=== PATIENT | female | born 1950 | race Caucasian/White ===

== ENCOUNTER → 2023-08-18 08:28 | Outpatient (REF) | payer MEDICARE, OTHER, SELFPAY | LOC: WDC 08:28 | PROVIDERS: ATTENDING PHYSICIAN Obstetrics & Gynecology Gynecology; FAMILY PHYSICIAN Family Medicine | DX: Z12.31 Encounter for screening mammogram for malignant neoplasm of breast (principal) | CPT/HCPCS: 77063; 77067 ==

== ENCOUNTER → 2024-08-21 07:23 | Outpatient (REF) | payer MEDICARE, OTHER, SELFPAY | LOC: WDC 07:23 | PROVIDERS: ATTENDING PHYSICIAN Obstetrics & Gynecology Gynecology; FAMILY PHYSICIAN Internal Medicine | DX: M81.0 Age-related osteoporosis without current pathological fracture (principal); Z12.31 Encounter for screening mammogram for malignant neoplasm of breast | CPT/HCPCS: 77063; 77067; 77080 ==

== ENCOUNTER 2024-09-29 06:04 | Inpatient (IN) | payer MEDICARE, OTHER, SELFPAY ==
[2024-09-29] VITALS (13 sets, daily range): BP systolic 114–152; BP diastolic 63–87; PULSE 56; O2SAT 98; BMI 24.8; BMI 25.2
[2024-09-29 03:23] LABS: Glucose - Point of Care 101 mg/dl (70-99)
[2024-09-29 03:35] LABS: % Basophils 0.7 % (0-2); % Eosinophils 2.5 % (0-6); % Immature Granulocytes 0.3 % (0-0.5); % Lymphocytes 30.8 % (20.5-51.1); % Neutrophils 57.7 % (42.2-75.2); Absolute Basophils 0.1 10^3/uL (0-0.2); Absolute Eosinophils 0.2 10^3/uL (0-0.7); Absolute Lymphocytes 2.7 10^3/uL (1.2-3.4); Absolute Monocytes 0.7 10^3/uL (0.1-0.6); Absolute Neutrophils 5.1 10^3/uL (1.4-6.5); Hematocrit 37.6 % (37.0-47.0); Hemoglobin 12.8 g/dL (12.0-16.0); Mean Corpuscular Hgb 31.1 pg (27.0-31.0); Mean Corpuscular Volume 91.5 fL (81.0-99.0); Mean Platelet Volume 10.1 fL (7.4-10.4); Nucleated Red Blood Cells % 0 %; Platelet Count 291 10^3/uL (130-400); Red Blood Cell Count 4.11 10^6/uL (4.20-5.40); Red Cell Dist. Width 13.1 % (11.5-14.5); White Blood Cell Count 8.9 10^3/uL (4.8-10.8)
[2024-09-29 03:46] LABS: INR 1.04; PT 13.9 Sec (11.4-14.6)
[2024-09-29 03:47] LABS: APTT 27.8 Sec (23.4-35.0)
[2024-09-29 03:52] LABS: ALT (SGPT) 15 U/L (0-35); AST (SGOT) 20 U/L (14-36); Albumin 4.5 g/dl (3.5-5.0); Alkaline Phosphatase 56 U/L (38-126); Blood Urea Nitrogen 15 mg/dl (7-17); Calcium 9.9 mg/dl (8.4-10.2); Carbon Dioxide 23 mmol/L (22-30); Chloride 107 mmol/L (98-107); Estimated Creatinine Clearance 51 ml/min; Glucose 106 mg/dl (70-99); Potassium 4.2 mmol/L (3.5-5.1); Sodium 139 mmol/L (135-145); Total Protein 7.6 g/dl (6.3-8.2); eGFR > 60.00
[2024-09-29 04:03] LABS: Troponin I < 0.012 ng/ml
--- NOTE | 2024-09-29 04:08 | EDRN ---
Pt last seen normal around 2029 by her . got up to let dog outside and pt got up to go to the bathroom. Pt came down the stairs around [id number] and said pt had difficulty talking, speech was slow and slurred 'she just
didn't look right.' Pt sat for 15 minutes and symptoms resolved so she went back upstairs to bed. was able to convince pt to come to ED. While in the waiting room, says pt's head slumped on his shoulder and she had slurred speech
again. Pt denies headache, ambulatory difficulty. says pt did not vomit and had no difficulty walking. No dizziness.
--- NOTE | 2024-09-29 05:03 | ED.CVA ---
History of Present Illness
General
Chief Complaint: CVA/TIA Symptoms
Source: patient and spouse
Exam Limitations: none
Time Seen by Provider: 09/29/24 03:15
Onset of Stroke Symptoms
Onset of symptoms known: No
Time pt last seen normal is known: Yes
Date last time pt seen normal: 09/28/24
Time last time pt seen normal: 21:00
History of Present Illness
History of Present Illness:
This is a 74-year-old woman with history of hypothyroidism maintained on Synthroid. Was feeling well prior to going to bed at 9 PM last night. Woke up at 2 AM to let the dog out and upon waking up was noted to have right lower facial droop as well
as some word searching, difficulty finding the right words. No other associated symptoms. Symptoms seem to resolve with rest but then recurred prompting to bring her to the hospital.
She denies weakness nor numbness, denies headache, denies dizziness nor lightheadedness.
Past History
Past History
ED Past Medical History: Hypothyroidism
ED Past Surgical History: None
Social History
Tobacco: Non-smoker
Alcohol: None
Drug: None
Personal:
Living: with family
Employment: Retired
Family History
Family History: Other (Noncontributory)
Phy Exam
Physical Exam
Physical Exam:
GENERAL: 74-year-old woman appears her stated age, awake and alert, pleasant, appears in no acute distress.
EYE: pupils equal and reactive. Extraocular muscles intact. Anicteric
NECK: Supple, nontender, no meningismus, no significant adenopathy.
ENT: posterior pharynx is clear, oral mucosa is moist. TM clear b/l, nares patent. Tongue is midline. There is very mild right lower facial droop.
CARDIAC: Regular rate and rhythm. no murmur.
LUNGS: Clear breath sounds bilaterally, no acute respiratory distress, no wheezes/rales/rhonchi
ABDOMEN: Soft, nondistended, without focal tenderness
NEUROLOGICAL: Alert and oriented x3, mild lower right facial droop. Mild expressive aphasia with intermittent word searching. No slurring. Motor strength 5/5 bilaterally. Gross sensation is intact. Gait is main and steady.
SKIN: Warm and dry, normal color, skin intact. No rash.
MUSCULOSKELETAL: No C/C/E. peripheral pulses are full and equal b/l. No palpable tenderness.
PSYCH: Normal and appropriate interaction.
NIH Stroke Score
Level of Consciousness: 0 - Alert
LOC questions: 0-Answers both correctly
LOC Commands: 0-Performs both correctly
Best Gaze: 0-Normal
Visual Gonzalez: 0=Normal, no visual loss
Facial palsy: 1=Minor paralysis
Motor - Right Arm: 0=No drift 10 seconds
Motor - Left Arm: 0=No drift 10 seconds
Motor - Right Le-No drift 5 seconds
Motor - Left Le-No drift 5 seconds
Limb Ataxia: 0-Absent
Sensation: 0-Normal
Best Language: 1-Mild aphasia
Dysarthria: 0-Normal
Extinction and Inattention: 0-No abnormality
Total Score:: 2
Alteplase Contraindication
Reasons for NON-Treatment with Thrombolytics: Time and Rapid improvement
Course
Orders/Labs/Results
Orders:
Orders
09/29/24 03:16
Electrocardiogram (*1) Urgent
Reason for Study: Other
Other Reason for Exam: Possible Stroke
CT HEAD STROKE ALERT W/o Cont Urgent
Comment:
Reason For Exam: slurred speech, left facial droop
Bedside Glucose- Treatment ONCE
Cardiac Monitoring- Treatment ONCE
EKG- Treatment ONCE
IV Insert/Care/Rem.- Treatment PRN
Vital Signs As Directed
Frequency: Other
Weight As Directed
Frequency: Once
Comment: ZERO STRETCHER SCALE FOR ACCURATE WEIGHT
O2 Therapy [RESP] Urgent
Titrate/Wean O2 to maintain O2 sat greater than (%): 93
Special Instructions: MAINTAIN CONTINUOUS O2 SATS > OR = 93%
09/29/24 03:19
CT BRAIN PERF STROKE ALERT Urgent
Comment:
Reason For Exam: slurred speech, left facial droop
CT HEAD/NECK ANG STROKE ALERT Urgent
Comment:
Reason For Exam: slurred speech, left facial droop
09/29/24 03:28
Complete Blood Count/With Diff Urgent
Comprehensive Metabolic Panel Urgent
PTT Urgent
Prothrombin Time Urgent
Troponin I Urgent
09/29/24 05:44
Admit/Transfer Patient As Directed
Co-Sign Provider:
Level of Care: Inpatient admission
Assign to:: Telemetry
Physician / Group: Grey
Diagnosis: CVA / TIA
Reason for Telemetry: CVA/TIA
Date to Stop Telemetry: 10/02/24
Time to Stop Telemetry: 11:00
Reason for Hospitalization: CVA / TIA
Expected length of stay greater than two midnights?: Yes
ELOS- Estimated Length of Stay in days: 2
I certify the patient meets the requirements for IP care: Yes
PRN Pain Medication Management As Directed
May give lesser potent ordered pain med per pt: Yes
preference::
Protocol:: Medication orders for pain may be administered in a
manner that supports deferring to patient preference
when the pt is:
- Requesting an ordered lesser potent pain medication.
Least to most potent pain medications are defined
as: acetaminophen < NSAID < tramadol < opioids
(morphine, oxycodone, hydromorphone).
- Requesting a lesser dose of the same medication IF
ORDERED.
- Requesting a less intrusive route of administration
if both routes are prescribed by the provider (PO <
IV).
09/29/24 05:46
Code Status As Directed
Resuscitation Status: Full Code
09/29/24 05:49
Aspirin Chewable [Low Strength Aspirin] 324 mg PO NOW STA
09/29/24 06:00
Flush (0.9% Sodium Chloride) [Flush (Nss)] See Dose Instructions IV PER PROTOCOL
10/02/24 11:00
DC Protocol for Telemetry ONCE
Abnormal Lab Results
09/29/24 09/29/24
03:22 03:28
RBC 4.11 L 10^6/uL
(4.20-5.40)
MCH 31.1 H pg
(27.0-31.0)
Absolute Monos (auto) 0.7 H 10^3/uL
(0.1-0.6)
Glucose 106 H mg/dl
(70-99)
POC Glucose 101 H mg/dl
(70-99)
09/29/24 03:28
09/29/24 03:28
Vital Signs
Initial and Last Documented VS:
Initial Vital Signs
Temp Pulse Resp BP Pulse Ox
98.5 F 55 18 152/84 99
09/29/24 03:12 09/29/24 03:12 09/29/24 03:12 09/29/24 03:12 09/29/24 03:12
Last Documented Vital Signs
Temp Pulse Resp BP Pulse Ox
98.5 F 66 13 150/85 98
09/29/24 03:12 09/29/24 06:00 09/29/24 06:00 09/29/24 06:00 09/29/24 06:00
MDM/Problems Addressed
Differential Diagnosis Includes:
Concern for stuttering CVA symptoms.
Stroke alert activated.
Unclear as to onset of symptoms, this is considered a 'wake-up stroke' last known normal at [address]/CTA as well as CT perfusion.
*Radiology
Radiology exam reviewed: radiology read reviewed
*Pulse Oximetry
SaO2: 97
Oxygen Mode of Delivery: Room air
Patient hypoxic: no
*EKG
Interpreted by ED Provider?: Yes
Interpretation: normal
Rate: normal
Rhythm: sinus
[place]: normal axis
Interval: normal interval
QRS Pattern: normal QRS
Ischemia: no ischemia
*Cut Off Sawyer Interpretation
Rate: normal
Interpretation: normal
Rhythm: sinus
*Critical Care Note
Total Time (30-74mins, 75-104mins- exclusive of procedures): Not Applicable
Update Note
Update Note:
05:00
CT/CTA head and neck are unremarkable. CT perfusion is negative as well.
Upon reexamination, facial droop is not appreciated. Has resolved and no significant word searching/expressive aphasia.
At this point with stuttering, resolving symptoms no indication for tPA.
If symptoms recur will plan for tPA as CT perfusion normal.
Will admit to hospitalist service.
ED Attending Note
-
Portions of this chart may have been created with voice recognition software.� Occasional wrong word or��sound alike� substitutions may have occurred due to the inherent limitations of voice recognition software.
Discharge Plan
Departure
Patient Disposition: Admit
Date of Disposition: 09/29/24
Time of Disposition: 05:12
Presentation/result/management discussed w/ accepting MD/DO: Hospitalist
Discharge Problem:
TIA r/o CVA
Interventions
Interventions:
*Risk Screen - Suicide Last Done: 09/29/24 04:00
*General Assessment Last Done: 09/29/24 03:12
*Neglect/Abuse Screening Last Done: 09/29/24 03:20
*ED- Fall Risk Assessment Last Done: 09/29/24 03:28
ED- Pulmonary Assessment Last Done: 09/29/24 03:22
ED- Neurological Assessment Last Done: 09/29/24 03:22
ED- Cardiac Assessment Last Done: 09/29/24 04:08
ED Swallowing Screen Last Done: 09/29/24 05:57
--- NOTE | 2024-09-29 05:49 | HPS.HSE ---
Family Physician
-
Family Physician: Juan Valerio
Chief Complaint
-
Slurred speech
History of Present Illness
Patient is a 74y F with PMH significant for hypothyroidism who presents to ED complaining of slurred speech. Patient states that she felt well last PM when going to bed. She woke around 2 AM today and felt 'funny'. She went to the bathroom and
returned to bed. noted that she had some R sided facial droop and her speech was slurred. Her symptoms initially improved, but recurred a short time later prompting them to present to the ED. In the ED patient was again back to baseline.
However, the slurred speech and facial droop recurred in the waiting room and have persisted since that time.
Patient noted no weakness or numbness of the extremities. She reports some sense of dizziness earlier this evening - but no falls / ataxia.
No prior history of CVA, [place], etc.
Medical History
Past Medical History
Past Medical History: Reports Other
Additional Past Medical History:
Hypothyroidism
Hypertension
Past Surgical History: Reports None
Social History
Tobacco: Non-smoker
Alcohol: None
Drug: None
Personal:
Living: With Family
Family History
Family History: CAD and Hypertension
Allergies / Home Medications
Allergies reflects when Allergies were last updated in [facility].
Home Medications with original date entered in [facility]
Allergy/Medication List:
Allergies
Allergy/AdvReac Type Severity Reaction Status Date / Time
Penicillins Allergy Hives Verified 09/29/24 04:08
Sulfa (Sulfonamide Allergy Itching Verified 09/29/24 04:08
Antibiotics)
Home Medications
calcium 600 mg (as carbonate)-vitamin D3 5 mcg (200 unit) tablet 1 tab PO DAILY 09/29/24
levothyroxine 75 mcg tablet 75 mcg PO DAILY 09/29/24
Review of Systems
-
History Source: Patient
A 12 point ROS was completed and negative except as noted: Yes
Constitutional: Denies Fever or Chills
Respiratory: Denies Cough or Trouble Breathing
Cardiac: Denies Chest Pain or Palpitations
Abdomen/GI: Denies Abdominal Pain, Nausea, Vomiting or Diarrhea
: Denies Dysuria or Frequency
Musculoskeletal: Denies Joint Pain or Edema
Neurological: Reports Dizzy and Other (slurred speech / facial droop.); Denies Headache, Weakness or Numbness
Psych: Denies Depression or Anxiety
Physical Exam
Vital Signs
Vital Signs
Temp Pulse Resp BP Pulse Ox
98.5 F 53 13 149/63 97
09/29/24 03:12 09/29/24 05:00 09/29/24 05:00 09/29/24 05:00 09/29/24 05:05
Physical Exam
General: Other (74y F in no acute distress.)
HEENT: Moist mucous membranes, PERRLA and Other (Mild R facial droop. Pos dysarthria. Comprehension, naming objects, etc intact.)
Respiratory: Clear; No Wheezes, Rales or Rhonchi
Cardiac: S1/S2 and Regular Rhythm; No Murmur
GI: Soft, Non Tender, Non Distended and Normal Bowel Sounds
Musculoskeletal: No Clubbing, No Cyanosis and No Edema
Neuro: AO x 3
Laboratory Results
-
09/29/24 03:28
09/29/24 03:28
Laboratory Results
PT 13.9 Sec (11.4-14.6) 09/29/24 03:28
INR 1.04 09/29/24 03:28
APTT 27.8 Sec (23.4-35.0) 09/29/24 03:28
Total Bilirubin 1.0 mg/dl (0.2-1.3) 09/29/24 03:28
AST 20 U/L (14-36) 09/29/24 03:28
ALT 15 U/L (0-35) 09/29/24 03:28
Alkaline Phosphatase 56 U/L (38-126) 09/29/24 03:28
Troponin I < 0.012 ng/ml 09/29/24 03:28
Impression/Plan
-
A/P: Patient is a 74y F with PMH significant for hypothyroidism who presents to ED for evaluation of dysarthria upon waking early this AM.
CVA / TIA
- Admit for further evaluation and treatment.
- Waxing / waning dysarthria and R facial droop since waking at 2 AM today - precise onset unclear.
- No limb weakness, ataxia, etc.
- CT, brain perfusion studies unremarkable.
- CTA with tortuous R ICA and severe narrowing at origin of L vertebral artery.
- Check MRI this AM.
- Follow serial neuro exams for any changes.
- ASA now and daily. Plavix daily.
- Check lipids, A1C, etc.
- Follow BP and restart losartan if needed for BP control (this was discontinued in July of this year and BP has been stable off of this medication).
- Neurology evaluation for additional recommendations.
- PT / OT / Speech therapy evaluations.
Hypothyroidism
- Continue current T4 replacement.
Hypertension
- Previously on losartan at low dose. Stopped in July due to reports of orthostatic symptoms.
- Follow BP and resume losartan if needed for goal of normotension prior to discharge.
DVT Prophylaxis: SCDs
Code Status: Full
[2024-09-29] MEDS: LOW STRENGTH ASPIRIN 324 MG PO (06:00)
--- NOTE | 2024-09-29 08:45 | CON.NEURO ---
Neuro Assessment/Plan
Assessment
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
Plan
Provide lifelong aspirin 325 mg due to intracranial stenosis, following 21 days of 81 mg daily with clopidogrel 75 mg daily. Would discontinue both of those therapies after 21 days with initiation of aspirin 325 mg.
Check lipid profile, initiate atorvastatin 40 mg if LDL greater than 70, initiate 80 mg if LDL greater than 100
No clear need for echocardiogram
Medical education materials to be provided
Permissive hypertension for the first 24 hours and then normotension
Rehabilitation evaluations and treatment
Outpatient hypercoagulable testing due to minimal risk factors for the patient to develop stroke
Outpatient cancer screening
Will follow as needed.
Consultation
Order
Date of Consultation: 09/29/24
Requesting Provider: Hospitalists
Reason for Consult: Right sided facial weakness and aphasia
Subjective/Objective
Subjective Data
Date of Service: September 29, 2024
Left-Handed
Patient was last known normal at 2100 hrs. yesterday, awoke at 0200 hrs. and noticed symptoms which included word finding and what is described as dysarthria. Similar episode in 2022 with the final diagnosis of BPPV.
Objective Data
Vital Signs
Temp Pulse Resp BP Pulse Ox
36.6 C 62 17 124/73 98
09/29/24 08:20 09/29/24 08:20 09/29/24 08:20 09/29/24 08:20 09/29/24 08:20
Lab Results
09/29/24 03:28
09/29/24 03:28
PT 13.9 Sec (11.4-14.6) 09/29/24 03:28
INR 1.04 09/29/24 03:28
APTT 27.8 Sec (23.4-35.0) 09/29/24 03:28
Sodium 139 mmol/L (135-145) 09/29/24 03:28
Potassium 4.2 mmol/L (3.5-5.1) 09/29/24 03:28
BUN 15 mg/dl (7-17) 09/29/24 03:28
Glucose 106 mg/dl (70-99) H 09/29/24 03:28
Calcium 9.9 mg/dl (8.4-10.2) 09/29/24 03:28
Patient Allergies
Penicillins Allergy (Verified 09/29/24 04:08)
Hives
Sulfa (Sulfonamide Antibiotics) Allergy (Verified 09/29/24 04:08)
Itching
CVA Assessment
Onset of Stroke Symptoms
Onset of symptoms known: Yes
Date of onset of symptoms: 09/29/24
Time of onset of symptoms: 02:00
Time pt last seen normal is known: Yes
Date last time pt seen normal: 09/28/24
Time last time pt seen normal: 21:00
NIH Stroke Score
Level of Consciousness: 0 - Alert
LOC Questions: 0-Answers both correctly
LOC Commands: 0-Performs both correctly
Best Horizontal Gaze: 0-Normal
Visual Gonzalez: 0=Normal, no visual loss
Facial Palsy: 1=Minor paralysis (On the right)
Motor - Right Arm: 0=No drift 10 seconds
Motor - Left Arm: 0=No drift 10 seconds
Motor - Right Le-No drift 5 seconds
Motor - Left Le-No drift 5 seconds
Limb Ataxia: 0-Absent
Sensation: 0-Normal
Best Language: 1-Mild aphasia
Dysarthria: 1-Mild slurring
Extinction and Inattention: 0-No abnormality
NIH Total Score:: 3
Tenecteplase Contraindications
Inclusion and Exclusion criteria reviewed: Yes
IAT Contraindications: NIHSS < 6
Review of Systems
-
History Source: Patient
All other systems: Reviewed and negative
EENT: Negative Decreased Vision or Swallowing Difficulty
Respiratory: Negative Trouble Breathing
Cardiac: Negative Chest Pain
Abdomen/GI: Negative Incontinence of Stool
Genitourinary: Negative Incontinence
Musculoskeletal: Negative Back Pain or Neck Pain
Neuro: Dizzy; Negative Headache
Physical Exam
-
General: No Apparent Distress and Appears Stated Age
Eyes: OU Absent Papilledema, Round OU, [place] Conjunctivae and No Ptosis
HEENT: Anicteric and Moist Mucous Membranes
Neck: Full Range of Motion
Respiratory: No Dyspnea
Cardiac: No JVD
GI: Non-distended
Skin: Unremarkable
Extremities: No Clubbing, No Cyanosis and No Edema
Psych: Negative Intact Judgement/Insight
Extended Neurological Exam
Mood & Affect: Mood Unremarkable and Affect Unremarkable
Attention Span & Concentration: Awake, Alert, Interactive and Moderate Difficulty with 2 Step Request
Memory: Unremarkable
Tremor: Hand Tremor Absent and Head Tremor Absent
Speech: Moderately Reduced Output and Dysarthric (Minimally)
Cranial Nerve II: Left Eye: Pupillary Reactivity Unremarkable, Pupillary Size Unremarkable and Visual Gonzalez Intact
Cranial Nerve II: Right Eye: Pupillary Reactivity Unremarkable, Pupillary Size Unremarkable and Visual Gonzalez Intact
Cranial Nerves III, IV, : Extraocular Movement: Extraocular Movement Full in all Directions
Cranial Nerve VII: Facial Symmetry: Reduced (On the right)
Cranial Nerve VIII: Hearing: Unremarkable Hearing to Normal Conversational Volume
Cranial Nerves IX, X: Palate Movement: Palate Elevation Symmetric
Cranial Nerve XII: Tongue Protusion: Midline
Muscle Strength, Overall: Full Throughout
Muscle Bulk & Tone: Bulk Unremarkable and Tone Unremarkable
Pronator Drift: No Drift in Upper Extremities
Deep Tendon Reflexes: Trace Throughout
Touch Sensation: Unremarkable
Coordination: [id number]-[id number]-kulubn Testing Unremarkable
Babinski Sign: Absent Bilaterally
Data Reviewed
-
CT-A: Report Reviewed and Image Reviewed
CT-Perfusion: Report Reviewed and Image Reviewed
CT Head: Report Reviewed
MRI Head: Report Reviewed and Image Reviewed
Labs: Report Reviewed
Lipid Profile: Ordered
Reviewed with: Physician, Nurse, Patient and Family (By phone after MRI was performed)
Old Records: Summarized
Medications
-
Active Medications
Generic Name Dose Route Start Last Admin
Trade Name Freq PRN Reason Stop Dose Admin
Acetaminophen 650 mg 09/29/24 08:14
Acetaminophen 325 Mg Tablet PO 10/27/24 08:13
Q4HPRN PRN
Mild Pain / Temp > 101
Aspirin 81 mg 09/30/24 08:00
Aspirin 81 Mg Chewable Tablet PO 10/28/24 07:59
DAILY JOSTIN
Clopidogrel Bisulfate 75 mg 09/29/24 08:30
Clopidogrel 75 Mg Tablet PO 10/27/24 08:29
DAILY JOSTIN
Levothyroxine Sodium 75 mcg 09/29/24 08:30
Levothyroxine 75 Mcg Tablet PO 10/27/24 08:29
DAILY@0600 JOSTIN
Sodium Chloride 0 flush 09/29/24 06:00
Sodium Chloride 0.9% (Flush) Syringe IV 10/27/24 05:59
PER PROTOCOL JOSTIN
Home Medications
�Medication �Instructions �Recorded
calcium 600 mg (as 1 tab PO DAILY 09/29/24
carbonate)-vitamin D3 5 mcg (200
unit) tablet
levothyroxine 75 mcg tablet 75 mcg PO DAILY 09/29/24
Past History
Past History
ED Past Medical History: HTN, Hypercholesterolemia, Hypothyroidism and Other (Osteoporosis, vitamin D deficiency, vertigo)
ED Past Surgical History: Other (Leblanc teeth removal)
Social History
Tobacco: Non-smoker
Alcohol: None
Drug: None
Personal:
Living: with family
Employment: Retired
Family History
Family History: Hypertension, CAD and Other (Father with dementia)
[2024-09-29] MEDS: SYNTHROID 75 MCG PO (08:50)
[2024-09-29] MEDS: PLAVIX 75 MG PO (08:51)
[2024-09-29 09:47] LABS: Erythrocyte Sed Rate 4 mm/hour (0-20)
[2024-09-29 10:07] LABS: TSH Reflex To Free T4 1.78 uIU/ml (0.47-4.68)
[2024-09-29 10:38] LABS: Glycohemoglobin (HgbA1c) 5.8 % (4.0-5.6)
--- NOTE | 2024-09-29 11:25 | W.PN.HOSP.TC ---
Today's Communication/Plan
-
MRI of brain. Neurology consult
Assessment / Plan
Assessment / Plan
Physical exam:
General: Acutely ill
HEENT: Normocephalic, Atraumatic and Moist Mucous Membranes
Respiratory: Clear to Auscultation; Negative Wheezes, Rales or Rhonchi
Cardiac: Regular Rhythm and S1/S2
GI: Soft, Nontender and Nondistended
Musculoskeletal: No Clubbing, No Cyanosis and No Edema
Neuro: Awake, Alert and Oriented, right facial weakness, aphasia present, no motor or sensory deficits appreciated.
Psych: Calm
A/P:
Acute CVA:
Continue aspirin and Plavix
Check fasting lipids and probably start a statin
No need for echocardiogram per neurology
Plan for MRI brain today
Neurology consult-discussed with neurology today
PT OT SP eval
Hypothyroidism:
Continue thyroid replacement
Hypertension:
Not on medications due to orthostatic hypotension
DVT prophylaxis:
Start Lovenox SQ
CODE STATUS:
Full code
Anticipated Discharge: 24 - 48 hours
Subjective/Interval History
-
Date of Service: September 29, 2024
Patient still remains with right facial weakness and mild dysarthria but overall better.
Objective Data
-
Labs:
Laboratory Results
09/29/24
03:28
WBC 8.9
Hgb 12.8
Hct 37.6
Plt Count 291
PT 13.9
INR 1.04
APTT 27.8
Sodium 139
Potassium 4.2
Chloride 107
Carbon Dioxide 23
BUN 15
Creatinine 0.8
Glucose 106 H
Calcium 9.9
Total Bilirubin 1.0
AST 20
ALT 15
Alkaline Phosphatase 56
Vital Signs:
Vital Signs
Temp Pulse Resp BP Pulse Ox
97.9 F 62 17 124/73 98
09/29/24 08:20 09/29/24 08:20 09/29/24 08:20 09/29/24 08:20 09/29/24 08:20
--- NOTE | 2024-09-29 11:42 | CM ---
Patient seen at bedside
IA Completed
Lives in 2 story home with , 2 steps to enter, flight to second floor bed/bathroom
PLOF: Independent, no device
Denies DME
Denies VN/Rehab
PT/OT to eval
Denies insecurities
PCP: Juan Valerio
Pharmacy: [facility]
PLAN: TBD, await PT/OT eval
[2024-09-29 12:35] LABS: Folate 3.1 ng/ml (2.76-20); Vitamin B12 407 pg/ml (239-931)
--- NOTE | 2024-09-29 16:37 | PTOTSP ---
ST Acute Care Evaluation
Pt currently presents with clinical signs of mild oropharyngeal dysphagia characterized by mild bolus holding with occasional difficulties initiating swallows and occasional wet vocal quality and/or throat clearing s/p swallow initiations with thin
liquids. Pt is at an increased risk for aspiration given pt's acute CVA and her change in mentation with reduced insight to her deficits.
Pt is also presenting with clinical signs of mild to moderate dysarthria, expressive language deficits characterized by significantly reduced verbal output unless provided with continuous verbal prompting, mild word finding difficulties, and
suspected higher level cognitive linguistic deficits.
Recommendations:
- Soft bite sized solids, thin liquids (one small sip at a time), and meds whole in puree.
- Aspiration precautions: HOB upright for all PO intake; assistance with tray set-up; one sip at a time; small bites/sips; alternate bites/sips.
- CLAIMS VICE PRESIDENT to f/u re: diet tolerance, use of compensatory strategies, and to determine of pt would benefit from an instrumental swallow study.
- CLAIMS VICE PRESIDENT to f/u re: further evaluate cognitive linguistic function and tx dysarthria and expressive language deficits.
- Pt would benefit from CLAIMS VICE PRESIDENT services upon discharge at next level of care for dysphagia, dysarthria, and deficits in expressive language at this time.
[2024-09-29] MEDS: LOVENOX 40 MG SC (17:04)
[2024-09-29] MEDS: MELATONIN 5 MG PO (20:19)
[2024-09-30] VITALS (8 sets, daily range): BP systolic 129–144; BP diastolic 65–79; PULSE 58–61; O2SAT 96; BMI 25.3
[2024-09-30] MEDS: SYNTHROID 75 MCG PO (05:35)
[2024-09-30 06:10] LABS: Hematocrit 35.9 % (37.0-47.0); Hemoglobin 12.2 g/dL (12.0-16.0); Mean Corpuscular Hgb 30.8 pg (27.0-31.0); Mean Corpuscular Volume 90.7 fL (81.0-99.0); Platelet Count 283 10^3/uL (130-400); Red Blood Cell Count 3.96 10^6/uL (4.20-5.40); Red Cell Dist. Width 13.2 % (11.5-14.5); White Blood Cell Count 7.6 10^3/uL (4.8-10.8)
[2024-09-30 06:24] LABS: Blood Urea Nitrogen 13 mg/dl (7-17); Calcium 9.6 mg/dl (8.4-10.2); Carbon Dioxide 25 mmol/L (22-30); Chloride 106 mmol/L (98-107); Estimated Creatinine Clearance 50 ml/min; Glucose 101 mg/dl (70-99); HDL Cholesterol 51 mg/dl; LDL Cholesterol, Calculated 157 mg/dl; Potassium 4.1 mmol/L (3.5-5.1); Sodium 138 mmol/L (135-145); Total Cholesterol 226 mg/dl (50-199); Triglyceride 93 mg/dl (10-149); Very Low Density Lipoprotein 18 mg/dl (0-30); eGFR > 60.00
[2024-09-30] MEDS: PLAVIX 75 MG PO (07:41)
[2024-09-30] MEDS: LOW STRENGTH ASPIRIN 81 MG PO (07:42)
--- NOTE | 2024-09-30 08:39 | W.PN.HOSP.TC ---
Today's Communication/Plan
-
DAPT and statins. Discharge planning
Assessment / Plan
Assessment / Plan
Physical exam:
General: Acutely ill
HEENT: Normocephalic, Atraumatic and Moist Mucous Membranes
Respiratory: Clear to Auscultation; Negative Wheezes, Rales or Rhonchi
Cardiac: Regular Rhythm and S1/S2
GI: Soft, Nontender and Nondistended
Musculoskeletal: No Clubbing, No Cyanosis and No Edema
Neuro: Awake, Alert and Oriented, right facial weakness, aphasia present, no motor or sensory deficits appreciated.
Psych: Calm
A/P:
Acute CVA:
MRI of the brain confirms acute infarct in the left basal ganglia
Continue aspirin and Plavix
Will start atorvastatin 40 mg p.o. nightly
No need for echocardiogram per neurology
Neurology consult-discussed with neurology today
PT recommends home versus outpatient PT
Speech therapy cleared her for pur�ed diet
Discussed with over the phone today
Hypothyroidism:
Continue thyroid replacement
Hypertension:
Not on medications due to orthostatic hypotension
We will allow permissive hypertension anyway
DVT prophylaxis:
Start Lovenox SQ
CODE STATUS:
Full code
Anticipated Discharge: Within 24 hours
Subjective/Interval History
-
Date of Service: September 30, 2024
Patient still has some aphasia and facial weakness. No other focal weakness or paresthesia.
Objective Data
-
Labs:
Laboratory Results
09/30/24
05:30
WBC 7.6
Hgb 12.2
Hct 35.9 L
Plt Count 283
Sodium 138
Potassium 4.1
Chloride 106
Carbon Dioxide 25
BUN 13
Creatinine 0.8
Glucose 101 H
Calcium 9.6
Vital Signs:
Vital Signs
Temp Pulse Resp BP Pulse Ox
99.1 F 51 16 132/71 95
09/30/24 07:00 09/30/24 07:00 09/30/24 07:00 09/30/24 07:00 09/30/24 07:00
I&O
09/29/24 09/30/24 10/01/24
06:59 06:59 06:59
Intake Total 240 / 240
Balance 240 / 240
[2024-09-30] MEDS: LIPITOR 40 MG PO (17:06)
[2024-09-30] MEDS: LOVENOX 40 MG SC (17:06)
[2024-09-30] MEDS: MELATONIN 5 MG PO (21:19)
[2024-10-01 03:00] VITALS: BP 132/73
[2024-10-01 06:00] VITALS: BMI 25.1
[2024-10-01] MEDS: SYNTHROID 75 MCG PO (06:21)
[2024-10-01 07:00] VITALS: BP 131/73
[2024-10-01] MEDS: PLAVIX 75 MG PO (08:37)
[2024-10-01] MEDS: LOW STRENGTH ASPIRIN 81 MG PO (08:37)
--- NOTE | 2024-10-01 09:30 | W.PN.HOSP.TC ---
Today's Communication/Plan
-
Discharge planning today
Assessment / Plan
Assessment / Plan
Physical exam:
General: No acute distress
HEENT: Normocephalic, Atraumatic and Moist Mucous Membranes
Respiratory: Clear to Auscultation; Negative Wheezes, Rales or Rhonchi
Cardiac: Regular Rhythm and S1/S2
GI: Soft, Nontender and Nondistended
Musculoskeletal: No Clubbing, No Cyanosis and No Edema
Neuro: Awake, Alert and Oriented, right facial weakness, aphasia present, no motor or sensory deficits appreciated.
Psych: Calm
A/P:
Acute CVA:
MRI of the brain confirms acute infarct in the left basal ganglia
Continue aspirin and Plavix. After DAPT she will be on aspirin full dose.
Will start atorvastatin 40 mg p.o. nightly
No need for echocardiogram per neurology
Neurology consult-discussed with neurology today
PT recommends home versus outpatient PT
Speech therapy cleared her for pur�ed diet and advance as tolerated
Discussed with over the phone yesterday and discussed with daughter at bedside today
Hypothyroidism:
Continue thyroid replacement
Hypertension:
Not on medications due to orthostatic hypotension
Hyperlipidemia:
Statin
DVT prophylaxis:
Start Lovenox SQ
CODE STATUS:
Full code
Anticipated Discharge: Today
Subjective/Interval History
-
Date of Service: October 01, 2024
No new complaints. Aphasia and facial weakness improving.
Objective Data
-
Vital Signs:
Vital Signs
Temp Pulse Resp BP Pulse Ox
98.2 F 49 17 131/73 99
10/01/24 07:00 10/01/24 07:00 10/01/24 07:00 10/01/24 07:00 10/01/24 07:00
I&O
09/30/24 10/01/24 10/02/24
06:59 06:59 06:59
Intake Total 240 / 240 420 / 420
Balance 240 / 240 420 / 420
--- NOTE | 2024-10-01 09:30 | W.DCSUMMARY ---
Discharge Summary
Discharge Data
Date of Admission: 09/29/24
Date of Discharge: 10/01/24
Total time spent discharging patient (in min): 35
-
Pending Results: No
Hospital Course
Patient is 74 years old female with past medical history of orthostatic hypotension, dyslipidemia, came into the hospital with aphasia and right facial weakness. Patient was found to have an acute thalamic stroke. Neurology consulted. She was
started on dual antiplatelet therapy and statins. She participated with physical therapy, Occupational Therapy, and speech pathology. She did well rest of the hospital stay. As per neurology there was no need for echocardiogram. Neurology
recommended dual antiplatelet therapy for 3 weeks and afterwards full dose aspirin lifelong due to intracranial stenosis. Recommended outpatient hypercoagulable testing and outpatient cancer screening as appropriate. Patient feels improved from
her presentation. She will be discharged in relatively stable condition today.
Discharge duration: 35-minutes
Discharge Plan
-
Patient Disposition: Home with Home Care
Discharge Diagnosis/Procedures: Acute stroke. Hyperlipidemia.
Diet: Low Cholesterol
Activity: As tolerated
Blood Work: Please PCP to order CBC, BMP within 1 week
Referrals:
Finesse Shaffer MD [Active, Neurology] - in four to six weeks
Juan Valerio MD [Family Provider, Internal Medicine] - in less than 1 week
Prescriptions:
New
atorvastatin 40 mg Tablet
40 mg PO QPM 30 Days Qty: 30 0RF
clopidogrel 75 mg Tablet
75 mg PO DAILY 21 Days Qty: 21 0RF
aspirin 81 mg Tablet,Chewable
81 mg PO DAILY 21 Days Qty: 21 0RF
aspirin 325 mg capsule
325 mg PO DAILY Qty: 30 0RF
Rx Instructions:
Start taking 10/22/2024 after finishing low dose aspirin and plavix.
Continued
calcium carbonate-vitamin D3 600 mg-5 mcg (200 unit) Tablet
1 tab PO DAILY
levothyroxine 75 mcg Tablet
75 mcg PO DAILY
Discharge Orders:
Discharge Patient (As Directed); Ordered 10/01/24
Ordered By: Jerry Lagos
Discharge Date and Time
Discharge Date/Time: 10/01/24 13:13
Print Language: KITTITIAN
--- NOTE | 2024-10-01 10:10 | CM ---
Patient seen at bedside with daughter Luz Maria
IMM explained & signed. In chart
CM consult completed for [facility]N
options reviewed & [facility] preferred - notified [facility] liaison referral to be entered
PLAN: Home with [facility]
daughter to transport
[2024-10-01 10:45] VITALS: BP 144/81; PULSE 58
--- NOTE | 2024-10-01 10:50 | VNURNOTE ---
Home Health Liaison met with patient and daughter at bedside to discuss [facility] nurse/therapy, visits, schedule and homebound status. Both are agreeable and understand that visits at home will be 2-3 x per week to assess and teach medical management.
both are aware that [facility] will contact them for start of care in 1-2 days after discharge from .
[facility] referral completed in [facility].
[2024-10-01 11:02] VITALS: BP 144/80
== END 2024-10-01 13:13 | disposition home health service (06) | DRG 66 ==
LOC: 3 WEST ACU 06:04
PROVIDERS: ADMITTING PHYSICIAN Hospitalist; ATTENDING PHYSICIAN Hospitalist; CONSULT PHYSICIAN Psychiatry & Neurology Neurology; EMERGENCY PHYSICIAN Emergency Medicine; FAMILY PHYSICIAN Internal Medicine
DX: I63.9 Cerebral infarction, unspecified (principal); R29.810 Facial weakness; R47.01 Aphasia; Z79.890 Hormone replacement therapy; E03.9 Hypothyroidism, unspecified; I10 Essential (primary) hypertension; Z88.0 Allergy status to penicillin; Z88.2 Allergy status to sulfonamides; E55.9 Vitamin D deficiency, unspecified; E78.00 Pure hypercholesterolemia, unspecified; I25.10 Atherosclerotic heart disease of native coronary artery without angina pectoris; M81.0 Age-related osteoporosis without current pathological fracture; Z79.02 Long term (current) use of antithrombotics/antiplatelets
CPT/HCPCS: 0042T; 70450; 70496; 70498; 70551; 80048; 80053; 80061; 82607; 82746; 82962; 83036; 84443; 84484; 85025; 85027; 85610; 85652; 85730; 92507; 92523; 92526; 92610; 93005; 97116; 97163; 97167; 99285; Q9967

== ENCOUNTER → 2024-10-30 10:53 | Outpatient (REF) | payer MEDICARE, OTHER, SELFPAY | LOC: HWRAD 10:53 | PROVIDERS: ATTENDING PHYSICIAN Internal Medicine | DX: R79.89 Other specified abnormal findings of blood chemistry (principal) | CPT/HCPCS: 76700 ==

== ENCOUNTER → 2024-11-02 15:42 | Outpatient (REF) | payer MEDICARE, OTHER, SELFPAY | LOC: RAD 15:42 | PROVIDERS: ATTENDING PHYSICIAN Internal Medicine | DX: N13.30 Unspecified hydronephrosis (principal) | CPT/HCPCS: 74177; Q9967 ==

== ENCOUNTER → 2024-11-15 13:00 | Outpatient (REF) | payer MEDICARE, OTHER, SELFPAY | LOC: HWRAD 13:00 | PROVIDERS: ATTENDING PHYSICIAN Physician Assistant; FAMILY PHYSICIAN Internal Medicine; REFERRING PHYSICIAN Obstetrics & Gynecology Gynecology | DX: N83.8 Other noninflammatory disorders of ovary, fallopian tube and broad ligament (principal) | CPT/HCPCS: 76830; 76856 ==

== ENCOUNTER → 2024-11-20 14:26 | Outpatient (REF) | payer MEDICARE, OTHER, SELFPAY | LOC: MRI 3T 14:26 | PROVIDERS: ATTENDING PHYSICIAN Physician Assistant | DX: N83.299 Other ovarian cyst, unspecified side (principal) | CPT/HCPCS: 72197; A9575 ==